=== PATIENT | male | born 1980 | race Caucasian/White ===

== ENCOUNTER 2021-03-14 10:36 | Emergency (ER) | payer BC, OTHER ==
--- NOTE | 2021-03-14 11:15 | EDM.PDOC ---
ED HPI GENERAL MEDICAL PROBLEM - General Chief Complaint: General Stated Complaint: COVID + LOW BLOOD PRESSURE Time Seen by Provider: 03/14/21 10:55 Source of Information: Reports: Patient History Limitations: Reports: No Limitations - History of Present Illness INITIAL COMMENTS - FREE TEXT/NARRATIVE: The patient presents from the clinic for hypotension and bradycardia. He was at the clinic to get Regeneron. He was diagnosed with COVID yesterday. They started to put an IV in and he nearly passed out. His BP went down and his heart rate slow down. He has a slight cough and he has generalize weakness. He feels good otherwise. He would like to not get the Regeneron. He would like to go. Onset: Sudden Duration: Minutes: Severity: Moderate Improves with: Reports: None Worsens with: Reports: None Associated Symptoms: Reports: No Other Symptoms - Related Data Allergies Allergy/AdvReac Type Severity Reaction Status Date / Time amoxicillin Allergy Cannot Verified 03/14/21 10:58 Remember cetirizine [From Zyrtec] Allergy Cannot Verified 03/14/21 10:58 Remember Home Meds: Home Meds . [No Known Home Meds] 03/14/21 [History] Past Medical History - Past Health History Medical/Surgical History: Denies Medical/Surgical History - Infectious Disease History Infectious Disease History: Reports: Novel Coronavirus Social & Family History - Tobacco Use Tobacco Use Status *Q: Former Tobacco User Years of Tobacco use: 15 Used Tobacco, but Quit: Yes Month/Year Tobacco Last Used: 07/2015 - Recreational Drug Use Recreational Drug Use: No ED ROS GENERAL - Review of Systems Review Of Systems: See Below Constitutional: Reports: No Symptoms HEENT: Reports: No Symptoms Respiratory: Reports: No Symptoms Cardiovascular: Reports: No Symptoms Endocrine: Reports: No Symptoms GI/Abdominal: Reports: No Symptoms : Reports: No Symptoms Musculoskeletal: Reports: No Symptoms ED EXAM, GENERAL - Physical Exam Exam: See Below Exam Limited By: No Limitations General Appearance: Alert, No Apparent Distress Ears: Normal External Exam Nose: Normal Inspection Head: Atraumatic, Normocephalic Neck: Normal Inspection Respiratory/Chest: No Respiratory Distress, Lungs Clear, Normal Breath Sounds Cardiovascular: Regular Rate, Rhythm, No Edema, No Murmur GI/Abdominal: Soft, Non-Tender, No Organomegaly, No Mass Back Exam: Normal Inspection Extremities: Normal Inspection Course - Vital Signs Last Recorded V/S: Last Vital Signs Temp 97.4 F 03/14/21 10:51 Pulse 70 03/14/21 10:51 Resp 16 03/14/21 10:51 BP 125/80 03/14/21 10:51 Pulse Ox 97 03/14/21 10:51 - Re-Assessments/Exams Free Text/Narrative Re-Assessment/Exam: 03/14/21 11:15 His exam looks good. I will discharge him home. Departure - Departure Time of Disposition: 11:20 Disposition: Home, Self-Care 01 Condition: Good Clinical Impression: Vasovagal syncope - Discharge Information *PRESCRIPTION DRUG MONITORING PROGRAM REVIEWED*: Not Applicable *COPY OF PRESCRIPTION DRUG MONITORING REPORT IN PATIENT CHARLES: Not Applicable Additional Instructions: Drink plenty of fluids. Take tylenol or motrin as needed for fever or chills. Try to lay on your stomach. That can help with your breathing. Please return if you are worse. Sepsis Event Note (ED) - Focused Exam Vital Signs: Vital Signs Temp Pulse Resp BP Pulse Ox 03/14/21 10:51 97.4 F 70 16 125/80 97
== END 2021-03-14 11:23 | disposition home or self-care (01) ==
LOC: JD.ED 10:36
DX: R55 Syncope and collapse (principal); Z88.0 Allergy status to penicillin; Z88.8 Allergy status to other drugs, medicaments and biological substances; Z87.891 Personal history of nicotine dependence
CPT/HCPCS: 99282; 99284

== ENCOUNTER 2025-05-31 17:27 | Emergency (ER) | payer BC ==
[2025-05-31] MEDS: methylPREDNISolone Sodium Succinate 125 MG/2 ML SDV IM ONE (17:49)
== END 2025-05-31 18:57 | disposition home or self-care (01) ==
LOC: JD.ED 17:27
DX: L50.0 Allergic urticaria (principal); I10 Essential (primary) hypertension; Z86.16 Personal history of COVID-19; Z79.899 Other long term (current) drug therapy; Z88.8 Allergy status to other drugs, medicaments and biological substances; Z88.1 Allergy status to other antibiotic agents; Z91.0120 Allergy to eggs, unspecified
CPT/HCPCS: 96372; 99283; A9270; J2919; 99284